=== PATIENT | female | born 1935 | race Caucasian/White ===

== ENCOUNTER 2016-11-05 16:18 | Inpatient (IN) | payer MEDICARE, OTHER ==
[~2016-11-05] VITALS: Ht 160 cm; Wt 106.0 kg
--- NOTE | ~2016-11-05 | HP ---
[facility] 81 Y [address] ROOM: [place] [address] LOCATION: GPCU ADMIT DATE: 11/05/2016 History & Physical DISCHARGE DATE: FAMILY PHYSICIAN: PHYSICIAN, UNKNOWN ATTENDING PHYSICIAN: NOE SAWYER DATE OF SERVICE: CHIEF COMPLAINT: Chest pain and dizziness. HISTORY OF PRESENT ILLNESS: A 81-year-old lady with a past medical history of hypothyroidism, hyperlipidemia, and depression who presented to the emergency department today with dizziness, which has been going on for many weeks now, describes it as a feeling that she is going to pass out, associated with chest tightness, which has been going on for 4 or 5 days now, got worse during the day today, present across her chest without any radiation, elevated with a nitroglycerin in the emergency department, and associated with on and off diaphoresis as well as a sense of impending doom. She also endorsed having shortness of breath along with it, but denied of having any PND, orthopnea, or dyspnea. She also endorsed having nausea, but denied of having any diarrhea, any constipation, any burning on urination, or any extremity swelling. REVIEW OF SYSTEMS: All other systems reviewed and were negative except what is mentioned in the HPI. PAST MEDICAL HISTORY: Significant for: 1. Hypothyroidism. 2. Hyperlipidemia. 3. Depression. 4. Obstructive sleep apnea, uses CPAP at home. MEDICATIONS: Medications are being reconciled right now. ALLERGIES: THE PATIENT IS ALLERGIC TO CELEBREX. SOCIAL HISTORY: The patient quit smoking in 1979. She lives in [place] by herself. FAMILY HISTORY: PATIENT'S NAME: NUNU DUNN [facility] AGE: 81 Y [address] ROOM: [address] [place] [address] LOCATION: GPCU ADMIT DATE: 11/05/2016 History & Physical DISCHARGE DATE: FAMILY PHYSICIAN: PHYSICIAN, UNKNOWN ATTENDING PHYSICIAN: NOE SAWYER Significant for diabetes on the maternal side. PHYSICAL EXAMINATION: VITAL SIGNS: 143/57, 16, 72, and afebrile. GENERAL: In no acute distress. Alert and oriented x3. HEENT: Head; atraumatic and normocephalic. Eyes; nonicteric. No pallor. Oropharynx; moist mucous membranes. CARDIOVASCULAR: S1 and S2. No murmurs, gallops, or rubs. LUNGS: Clear to auscultation bilaterally. ABDOMEN: Soft, nontender, and nondistended. Bowel sounds are present. EXTREMITIES: No clubbing, cyanosis, or edema. PSYCHIATRIC: Normal affect, mood, and speech. NEUROLOGIC: Cranial nerves 2 through 12 intact. No motor or sensory deficits noted. LABORATORY DATA AND IMAGING STUDIES: Chest x-ray was done in the emergency department, did show cardiomegaly without any interstitial edema or acute infiltrate. EKG was done, showed normal sinus rhythm with sinus arrhythmia without any acute ST-T wave changes. Laboratory work done in the emergency department showed a normal BMP, normal CBC, and first set of troponin is negative. D-dimer was elevated at 1.12. ASSESSMENT AND PLAN: 1. Unstable angina. 2. Hypothyroidism. 3. Hyperlipidemia. 4. Depression. 5. Dizziness. Plan: We are going to admit this patient given the presentation of unstable angina is on my top differential. We are going to start her acute coronary syndrome protocol including heparin drip. Cardiology consultation will be obtained. Given the elevated D-dimer and chest pain, I am going to obtain a CT of the chest, pulmonary embolism protocol. A CAT scan of the head for the dizziness. Further management will depend on her progress in the hospital. She also have obstructive sleep apnea. We will continue to use CPAP at night at this point. Bedrest with bathroom privileges. She is a full code. MD MAHI SALCIDO/lenin PATIENT'S NAME: NUNU DUNN [facility] AGE: 81 Y [address] ROOM: [address] [place], [place] [address] [facility] AD[facility] DATE: 11/05/2016 History & Physical DISCHARGE DATE: FAMILY PHYSICIAN: PHYSICIAN, UNKNOWN ATTENDING PHYSICIAN: NOE SAWYER /[id number] D: [id number] T: [id number] HISTORY & PHYSICAL
--- NOTE | ~2016-11-05 | ER ---
PATIENT'S NAME: NUNU DUNN [facility] AGE: 81 Y [address] ROOM: [address] [address] LOCATION: GPCU ADMIT DATE: 11/05/2016 ER/Outpatient Report DISCHARGE DATE: FAMILY PHYSICIAN: PHYSICIAN, UNKNOWN ATTENDING PHYSICIAN: NOE LORENZO Time of Arrival: 1610 hours. Time of Evaluation: 1610 hours. CHIEF COMPLAINT: Chest pain and palpitations. HISTORY OF PRESENT ILLNESS: The patient is a 81-year-old female, who presents to the emergency department today with chief complaint of chest pain and palpitations. She reports this started about 2-3 hours prior to arrival. She has had some decreased energy over the past couple days. She feels like her heart is beating fast as well as having a pressure in the center of her chest. Denies any radiation. Does feel like she is going to pass out. Denies any room spinning. Does report it is a knot type feeling. Denies any shortness of breath. Pain is currently 0/10 in severity. En route, the patient was given aspirin and nitroglycerin. The nitroglycerin did relieve the patient's pain. PAST MEDICAL HISTORY: Hypothyroidism, dyslipidemia, depression, obstructive sleep apnea. PAST SURGICAL HISTORY: Bowel resection, back x2, bilateral knees. SOCIAL HISTORY: The patient quit smoking in 1979. Denies any tobacco, alcohol, or illicit drug use. ALLERGIES: LATEX, DEMEROL, AND CELEBREX. MEDICATIONS: Please see list. ROS: All systems are reviewed by myself and are negative with the exception as discussed in HPI and past medical history. PHYSICAL EXAMINATION: VITAL SIGNS: Weight 106.1 kg, blood pressure 213/111, pulse 62, respiratory PATIENT'S NAME: NUNU UDNN [facility] AGE: 81 Y [address] [place]OM: [facility] [place], [place] [address] LOCATION: GPCU ADMIT DATE: 11/05/2016 ER/Outpatient Report DISCHARGE DATE: FAMILY PHYSICIAN: PHYSICIAN, UNKNOWN ATTENDING PHYSICIAN: NOE LORENZO A rate 18, temperature 98.2, oxygen saturation 97% on 2 L nasal cannula. GENERAL: The patient is a 81-year-old female, who appears her stated age, in no acute distress at this time. HEENT: Normocephalic, atraumatic. Pupils are equal, round, and reactive to light. NECK: Supple. There is no nuchal rigidity. CARDIOVASCULAR: Regular rate and rhythm. No murmurs, rubs, or gallops. LUNGS: Clear to auscultation bilaterally. No wheezes, rales, or rhonchi. ABDOMEN: Soft, nontender, and nondistended. No rebound, rigidity, or guarding. MUSCULOSKELETAL: The patient moves all 4 extremities. SKIN: Warm and dry. There is no rashes or lesions noted. LABORATORY DATA AND X-RAYS: Labs and x-rays are obtained. EKG is obtained, is interpreted by myself, shows sinus rhythm with a rate of 63, left axis deviation, normal interval. No ST elevation, ST depression, T-wave inversion. CBC is normal. Lactate is normal. Coags are normal. Procalcitonin is less than 0.05. ProBNP is 152. CMP is unremarkable. LFTs are normal. Magnesium is normal. Cardiac enzymes are normal. Free T4 is normal. TSH is normal. Chest x-ray shows no acute process. D-dimer is elevated at 1.12. CT scan of the chest is pending at the time of transfer of care. IMPRESSION: 1. Chest pain, rule out acute coronary syndrome. 2. Palpitations. 3. Elevated D-dimer. 4. Initial visit. EMERGENCY DEPARTMENT COURSE: The patient was brought back to the examination room. Seen and evaluated by myself. IV is established. Laboratory analysis and imaging are obtained as described above. The patient was given aspirin and nitroglycerin prior to arrival. The patient was initially chest pain-free. Her pain did return. It was 3/10. She was given another nitroglycerin with improved symptoms. I did discuss results with the patient. The patient's D-dimer is elevated and a CT scan of the chest, PE study was ordered and is pending at the time of transfer of care. I did discuss the case with Dr. Lorenzo at the Hospitalist Service. He does agree to accept the patient and we will await CT scan results. I have discussed the case with Dr. Glynn who will follow up on the CT results as well. DISPOSITION/FOLLOW-UP: The patient is admitted under the care of Dr. Lorenzo in stable condition. PATIENT'S NAME: MONA, NUNU F [facility] AGE: 81 Y [address] ROOM: [address] [place] [id number] [facility] AD[facility] DATE: 11/05/2016 ER/Outpatient Report DISCHARGE DATE: FAMILY PHYSICIAN: PHYSICIAN, UNKNOWN ATTENDING PHYSICIAN: NOE LORENZO DO WILLIAM PINEDA/lenin /[id number] d: 11/06/16 0632 t: 11/07/16 0755, OUTPATIENT REPORT
--- NOTE | ~2016-11-05 | ER ---
PATIENT'S NAME: NUNU DUNN [facility] AGE: 81 Y [address] ROOM: [facility] [place], [place] [address] [facility] AD[facility] DATE: 11/05/2016 ER/Outpatient Report DISCHARGE DATE: FAMILY PHYSICIAN: PHYSICIAN, UNKNOWN ATTENDING PHYSICIAN: NOE LORENZO HISTORY OF PRESENT ILLNESS: This patient is a 81-year-old female who presented to the emergency room with chest pain, palpitations, and loss of energy. The patient saw Dr. Rosas. See Dr. Rosas's dictation in regards to the chief complaint, history of the present illness, past medical history, physical exam, chest x-ray, EKG, and laboratory study results. The patient did have an elevated D-dimer. Dr. Rosas did order a CT scan of the chest with PE protocol along with CT scan of the head. Dr. Lorenzo hospitalist has seen the patient and will admit the patient to the hospital. Dr. Rosas transferred the patient's care over to me at shift change and asked me to follow up with the CT scan results of the head and chest with PE protocol. CT scan of the chest with PE protocol showed no acute pulmonary embolism or other intrathoracic abnormalities. CT scan of the head showed no acute bleed, midline shift, mass effect, or skull fracture. The patient did have some small vessel ischemic changes. CT scan is read by Radiology, see dictated transcribed report. I did again talk with Dr. Lorenzo about the results of the CT scan. The patient will be admitted to the hospital. MD SELAM SCHMIDT/modl /[id number] d: 11/05/162324 t: 11/06/16 1824, OUTPATIENT REPORT
--- NOTE | ~2016-11-05 | CON ---
PATIENT'S NAME: NUNU DUNN [facility] AGE: 81 Y [address] ROOM: [place] [address] LOCATION: GPCU ADMIT DATE: 11/05/2016 Consultation DISCHARGE DATE: 11/06/2016 FAMILY PHYSICIAN: Physician, Unknown ATTENDING PHYSICIAN: Marla Lorenzo DATE OF CONSULTATION: 11/06/2016 REFERRING PHYSICIAN: Angel Nguyen MD CARDIOLOGY CONSULTATION REASON FOR CARDIOLOGY CONSULTATION: Chest pain. HISTORY OF PRESENT ILLNESS: This is a 81-year-old female, who presents to the [facility] Emergency Department with complaints of chest pain and palpitations lasting over the last few hours. She also admits to having some decreased energy over the last week. She denies presyncope or syncope. She also denies nausea, vomiting, or diarrhea. The patient's pain was ultimately relieved during her ambulance ride to the hospital with a sublingual nitroglycerin. She has a previous history of a coronary angiography which was negative in 2008. Her other history includes peptic ulcer disease, cholecystectomy, and incarcerated hernia surgery in 2016. She also has noted dyslipidemia and hypothyroidism as well as obstructive sleep apnea. Other than her complaints of chest pain, she admits to no recent changes in health. PAST MEDICAL HISTORY: As listed in the HPI. PAST SURGICAL HISTORY: As listed in the HPI. FAMILY HISTORY: The patient's mother had a history of stroke and her father had a history of heart disease, specifically myocardial infarction. He also had noted emphysema. She had a grandfather with a history of stroke and a grandmother with a history of colon cancer. SOCIAL HISTORY: The patient is a former cigarette smoker. She smoked a pack and half for 25 years and quit smoking in 1981. She denies alcohol or illicit drug use. CURRENT MEDICATIONS: 1. Heparin IV per ACS protocol. PATIENT'S NAME: NUNU DUNN [facility] AGE: 81 Y [address] ROOM: [place] [address] LOCATION: GPCU ADMIT DATE: 11/05/2016 Consultation DISCHARGE DATE: 11/06/2016 FAMILY PHYSICIAN: Physician, Unknown ATTENDING PHYSICIAN: Marla Lorenzo 2. Aspirin 81 mg p.o. daily. 3. Lipitor 80 mg p.o. daily in the evening. MEDICATION ALLERGIES: 1. Meperidine causing hives. 2. Celebrex causing mouth edema. 3. Latex causing rash. REVIEW OF SYSTEMS: Pertinent positive review of systems listed in the HPI. All other review of systems evaluated and negative. LABORATORY DATA AND IMAGING STUDIES: Diagnostics: CMS evaluation shows a sodium of 145, potassium 4.4, BUN of 24, creatinine 0.8, and glucose of 93. CBC evaluation shows a white blood cell count of 3.9, hemoglobin of 9.3, hematocrit 31.7, and platelets of 120,000. Cardiac enzyme trend shows a CPK of 31, then 28, then 29, and then 25; CK-MB of less than 0.5, then 0.5, then less than 0.5 x2; and a troponin I of less than 0.04 x4 values. PHYSICAL EXAMINATION: VITAL SIGNS: Afebrile. Pulse 61, respirations 24, blood pressure 142/93, and O2 saturation 94% on room air. The patient weighs 106 kg. SKIN: [place], warm, and dry. EYES: Sclerae clear. No xanthelasmas. ENT: Oral mucosa is pink and moist. No jugular venous distention or carotid bruits. CHEST: Respirations are even and unlabored. LUNGS: Clear to auscultation. HEART: Regular rate and rhythm. Normal S1 and S2. Does have the presence of a 2/6 systolic murmur. ABDOMEN: Soft and nontender. MUSCULOSKELETAL: Gait is normal. EXTREMITIES: Peripheral pulses palpable. No clubbing, cyanosis, or edema. PSYCHIATRIC: Alert and oriented. Mood and affect appropriate. IMPRESSION AND PLAN: Per Dr. Nguyen: 1. Unstable angina. 2. Hyperlipidemia. 3. Hypothyroidism. We will plan to proceed with a Lexiscan stress test to fully evaluate myocardial perfusion imaging. We will also check an echocardiogram to fully evaluate ejection fraction as well as to look for wall motion or valvular abnormalities. We will continue to monitor, evaluate, and treat as PATIENT'S NAME: NUNU DUNN [facility] AGE: 81 Y [address] ROOM: [place] [address] LOCATION: GPCU ADMIT DATE: 11/05/2016 Consultation DISCHARGE DATE: 11/06/2016 FAMILY PHYSICIAN: Physician, Unknown ATTENDING PHYSICIAN: Marla Lorenzo. Thank you for this consult. Thank you for allowing [facility] to interact in the care of this patient. GAMAL MCKEON APRN FOR [facility]IE-[facility] BOSSMAN CASAS/lenin /[id number] d: 11/06/162100 t: 11/09/16 1754, CONSULTATION REPORT
--- NOTE | ~2016-11-05 | ESTC ---
Cardiac Perfusion Imaging Demographics Patient Name MONA Romo Gender Female Patient Number [id number] Race Visit Number [id number] Ethnicity Corporate ID Room Number G6331 Accession Number [id number] Height 63 inches Date of 1935 Weight 233 pounds A Interpreting Stephanie Barnett Date of study 11/06/2016 Physician Supervising /LENKA Ledezma APRN NM Technologist Ordering Physician Patrick Coulter Stress Ellie FLOREST, A gem technician RDCS Stress ECG Reading Wilberto Ledezma APRN Nurse Rita Oliveira RN Physician Procedure Procedure Type: Nuclear Stress Test:Cardiolite Stress Test Procedure Start time: 11/06/2016 08:20 Indications: Angina. Risk Factors The patient risk factors include:prior PCI on 08/06/2007;obesity, former tobacco use, treated hypercholesterolemia and ( years not smokin). Conclusions Summary Perfusion Images: The overall quality of the study is fair, due to gastrointestinal tracer uptake. Left ventricular cavity is noted to be normal on the stress and rest studies. There is no evidence of abnormal lung activity. The right ventricle is not visualized and cannot be assessed. Stress SPECT images and Rest SPECT images demonstrate homogenous tracer distribution throughout the myocardium except for mild decrease uptake in the area involving the lateral wall worse on rest images consistent with artifact. Gated SPECT imaging reveals normal myocardial thickening and wall motion. The left ventricular ejection fraction was calculated to be 74%. Impression ECG portion of stress test is clinically negative for ischemia by diagnostic criteria. Myocardial perfusion imaging is probably normal. The lateral wall mild defect worse on rest images with preserved wall motion is consistent with soft tissue attenuation. Overall left ventricular systolic function was normal without regional wall motion abnormalities. Stress Protocols Resting ECG Sinus rhythm with 1st degree AVB Pre-stress physical exam: Patient assessed by Mariya BRAN prior to testing. Predicted HR: 141 bpm HR response: Appropriate BP response: Appropriate ECG Findings No ECG changes suggestive of ischemia. Arrhythmias No rhythm abnormality. Symptoms Shortness of breath. Complications Procedure complication: None. Stress Interpretation Appropriate hemodynamic response to Lexiscan. No significant ST-T wave changes with Lexiscan. ECG portion is negative for ischemia by diagnostic criteria. Will correlate with nuclear images. Imaging Results Summed scores - Summed stress score: 14 - Summed rest score: 12 - Summed difference score: 2 Stress ejection Ejection fraction:74 % EDV :139 ml ESV :36 ml Stroke volume :103 ml LV mass :163 gr Imaging Protocols Rest Stress Isotope:Tc99m Sestamibi IV Isotope: Tc99m Sestamibi IV Isotope dose:14.8 mCi Isotope dose:43.2 mCi Date:11/06/2016 07:14 Date:11/06/2016 09:33 Technique: SPECT Technique: Gated Supine SPECT Supine IV remains in place after procedure. Scan Time:45-60 minutes post Scan Time:45-60 minutes post injection injection Procedure Medications - Regadenoson (Lexiscan) 0.4 mg IV over 10-15 sec. I.V. 0.4 mg. Medical History Admission Data Admission date: 11/05/2016 Admission Time: 18:19 Hospital Status: Inpatient. Signatures dtt: DAVE HOANG dtd: 11/06/16 0820 Physician Self Edit
--- NOTE | ~2016-11-05 | DS ---
PATIENT'S NAME: NUNU DUNN [facility] AGE: 81 Y [address] ROOM: [address] [place], [place] [address] LOCATION: GPCU ADMIT DATE: 11/05/2016 Discharge Summary DISCHARGE DATE: 11/06/2016 FAMILY PHYSICIAN: Physician, Unknown ATTENDING PHYSICIAN: Marla Lorenzo PRINCIPAL DIAGNOSES: 1. Atypical chest pain. 2. Essential hypertension. 3. Hypothyroidism. 4. Hyperlipidemia. 5. Depression. 6. Dizziness. 7. Microcytic anemia. HOSPITAL COURSE: A 81-year-old lady was admitted with a chest pain which was very typical for cardiac in nature. Initial EKG and her troponin levels in the hospital were negative. Chest x-ray was also not significant for any changes. A CT scan of the chest with the PE protocol was obtained which was negative for any pulmonary embolism. Given her dizziness, a CT scan of the head was also obtained which was negative. A Lexiscan was done in the hospital per Cardiology's recommendation which returned negative. Initially, she was put on ACS protocol and was discharged to home on the same medication which she came in with. Additional medication was amlodipine 2.5 mg p.o. q. day. Of note, she was noted to have a hemoglobin of 9.3 in the hospital. MCV was 85. I would recommend a PCP followup within 1 week to work up for this normocytic anemia. DISCHARGE MEDICATIONS: 1. Aspirin 81 mg p.o. daily. 2. Zofran 4 mg p.o. q.8 hours. 3. Omeprazole 20 mg p.o. twice daily. 4. Trazodone 50 mg p.o. every night at bedtime. 5. Albuterol 2 puffs inhalation every 6 hour p.r.n. 6. Levothyroxine 88 mcg p.o. every day before breakfast. 7. Trospium chloride 60 mg p.o. every day. 8. Sertraline 200 mg p.o. every day. 9. Gabapentin 1200 mg p.o. every evening. 10. Multiple vitamins. 11. Ascorbic acid 250 to 500 mcg p.o. every day. 12. Vitamin D3, 2000 units every night at bedtime. 13. Knippa 5/325, 1 tablet p.o. q.4 hours for pain. 14. Mylanta 30 mL p.o. every day. PATIENT'S NAME: NUNU DUNN [facility] AGE: 81 Y [address] ROOM: [id number] [place] [id number] [facility]: 11/05/2016 Discharge Summary DISCHARGE DATE: 11/06/2016 FAMILY PHYSICIAN: Physician, Unknown ATTENDING PHYSICIAN: Marla Lorenzo 15. Nitroglycerin 0.4 mg sublingual, may take up to 3 doses every 5 minutes if symptomatic left angina pain persists. 16. Wellbutrin XL 150 mg p.o. every night at bedtime. 17. Primidone 50 mg p.o. every night at bedtime. 18. Flonase 2 sprays in nostrils every day twice daily. 19. Advair 500/50, 1 puff inhalation twice daily. 20. Senna docusate 1 tablet p.o. twice daily. 21. New medications include: Amlodipine 2.5 mg p.o. every day. 22. Ibuprofen 400 mg p.o. t.i.d. p.r.n. for 1 week. DISCHARGE INSTRUCTIONS: 1. Activity: As tolerated. 2. Diet: As tolerated. 3. Followup: Follow up with Dr. Rojas in 1 week for work up of anemia. CONDITION ON DISCHARGE: The patient was discharged in stable condition. MD MAHI SALCIDO/lenin /[id number] d: 11/07/16 1342 t: 11/09/16 1517, DISCHARGE SUMMARY
--- NOTE | ~2016-11-05 | ECHO ---
Transthoracic Echocardiography Report (TTE) Demographics Patient Name NUNU DUNN Date of Study 11/06/2016 Patient Number [id number] Visit Number [id number] Date of 1935 Room Number G6331 Gender Female Number Age 81 year(s) Referring Bj Cabrera Cardiac Rehab Nurse Conor Boyer Physician Physician Interpreting Carmen Stuart Air Brake Man Physician Supervising Ordering Bj Cabrera MD/MLP Physician Nurse Stress Safety And Occupational Health Manager Conclusions Contractility Score Summary Normal Left Ventricular contractility was noted. Summary The estimated left ventricular ejection fraction is 55-60%.Mild septal left ventricular hypertrophy.Normal LVEF and WM. Trivial MR. Mild aortic sclerosis. The right atrium is mildly dilated. There is mild pulmonary hypertension. The pulmonary pressure (RVSP) is 38 mmHg. The ascending aorta appears moderately dilated. The maximum diameter measures 3.7 cm. Procedure Type of Study TTE procedure:2D Echocardiogram, M-Mode, Doppler , Color Doppler. Procedure Date Date: 11/06/2016 Start: 09:39 AM Study Location: Echo Lab Technical Quality: Good visualization Indications:Chest pain and Unstable angina. Appropriate Use Criteria: 9 Patient Status: Routine HR: 65 bpm BP: 130/61 mmHg M-Mode/2D Measurements LV Diastolic Dimension: 4.76 cm LV Systolic Dimension: 2.59 cm LV Septum Diastolic: 1.12 cm LV PW Diastolic: 0.95 cm AO Root Dimension: 2.7 cm Cardiac Output: 5.69 l/min LA Dimension: 3.3 cm EF Estimated: 60 % LVOT: 1.9 cm LVOT VTI: 30.9 cm RV Base: 3.31 cm LV Stroke volume: 87.57 ml RV Length: 7.17 cm TAPSE: 2.42 cm TDI-S': 16.7 cm/s Doppler Measurements AV Peak Velocity: 2.23 m/s MV Peak E-Wave: 1.07 m/s AV Peak Gradient: 19.89 mmHg MV Peak A-Wave: 0.83 m/s AV Mean Gradient: 11 mmHg MV E/A Ratio: 1.28 LVOT Peak Velocity: 1.38 m/s MV Deceleration Time: 232 msec TR Velocity:2.94 m/s PV Peak Velocity: 1.41 m/s TR Gradient:34.57 mmHg PV Peak Gradient: 7.95 mmHg Estimated RAP:3 mmHg Estimated PASP: 37.57 mmHg Estimated RVSP: 38 mmHg A' Septal Velocity: 0.12 m/s E' Septal Velocity: 0.11 m/s A' Lateral Velocity: 0.16 m/s E' Lateral Velocity: 0.1 m/s Findings Left Ventricle The left ventricle is normal in size .Mild septal left ventricular hypertrophy. Normal LVEF and WM. Right Ventricle Normal right ventricle structure and function. Left Atrium Normal left atrial size. Right Atrium The right atrium is mildly dilated. IVC measures 1.69 cm with inspiratory collapse. Mitral Valve Trivial mitral regurgitation by color Doppler. Aortic Valve The aortic valve is mildly sclerotic. Tricuspid Valve Mild tricuspid regurgitation by color Doppler. There is mild pulmonary hypertension. The pulmonary pressure (RVSP) is 38 mmHg. Pulmonic Valve Normal pulmonic valve structure and function. Pericardial Effusion No evidence of pericardial effusion. Miscellaneous The ascending aorta appears mildly dilated. The maximum diameter measures 3.7 cm. Pleural Effusion No evidence of pleural effusion. Contractility Score LV regional wall motion:(0-Non visualized 1-Normal 2-Hypokinesis 3-Akinesis 4-Dyskinesis 5-Aneurysm) Signature dtt: Sade Morales dtd: 11/06/16 0939 Physician Self Edit
[~2016-11-05 16:18] MED LIST: ASPIRIN LO-DOSE81 MG PO; DESYREL50 MG PO; DULCOLAX10 MG R; LEVOTHROID (SY88 MCG PO; MYLANTA (MAG-AL30 ML PO; NEURONTIN300 MG PO; NITROSTAT0.4 MG SL; NORCO 5-325 TA1 EACH PO; NORVASC5 MG PO; OMEPRAZOLE20 MG PO; PROAIR HFA8.5 GM INH; SENOKOT S (S1 TABLET PO; SIMETHICONE PO; THERA-VITE W/ B1 TAB PO; TRICOR48 MG PO; TROSPIUM CHLORI60 MG PO; VITAMIN C250 M1 PO; VITAMIN D-32000 UNI1 PO; ZOLOFT100 MG PO; [UNRECOGNIZED DRUG - OTHER] PO
[2016-11-05 16:41] LABS: BASOPHIL % 0.7 %; EOSINOPHIL # 0.1 K/uL (0.0-0.5); EOSINOPHIL % 1.6 %; HEMATOCRIT 34.4 % (33.0-46.0); HEMOGLOBIN 10.2 g/dL (10.0-15.0); IMMATURE GRANULOCYTE % 0.2 %; LYMPHOCYTE # 1.5 K/uL (0.8-4.0); LYMPHOCYTE % 34.2 %; MCHC 29.7 gm/dL (32.0-36.5); MCV 84.3 fl (83.0-98.0); MONOCYTE # 0.4 K/uL (0.0-1.0); MONOCYTE % 9.6 %; MPV 10.4 fl (9.4-12.4); NEUTROPHIL # (ANC) 2.3 K/uL (1.8-7.8); NEUTROPHIL % 53.7 %; NRBC % 0 /100WBC (0-0.00); PLATELET COUNT 195 K/uL (150-450); RBC 4.08 M/uL (3.50-5.50); RDW-CV 15.8 % (11.9-14.6); WBC 4.3 K/uL (4.0-11.0)
[2016-11-05 16:54] LABS: PTT 24 SECONDS (25-32)
[2016-11-05 17:00] LABS: ALBUMIN 3.2 gm/dL (3.5-5.0); ALK PHOS 51 IU/L (33-138); ALT 16 IU/L (12-78); ANION GAP 11.3 (10.0-19.0); AST 13 IU/L (10-40); BLOOD UREA NITROGEN 20 mg/dL (6-24); CALCIUM 9.4 mg/dL (8.5-10.5); CHLORIDE 107 mMol/L (96-110); CO2 28 mMol/L (22-32); CPK 31 IU/L (21-215); CREATININE 0.9 mg/dL (0.5-1.1); ESTIMATED GFR (MDRD EQUATION) 60; MAGNESIUM 1.9 mg/dL (1.3-2.6); POTASSIUM 4.3 mMol/L (3.7-5.1); SODIUM 142 mMol/L (135-145); TOTAL BILIRUBIN 0.2 mg/dL (0.0-1.5); TOTAL PROTEIN 6.8 g/dL (6.0-8.4)
[2016-11-05 19:04] LABS: CPK 28 IU/L (21-215)
[2016-11-05 20:03] LABS: BILIRUBIN URINE NEGATIVE (NEGATIVE); BLOOD URINE NEGATIVE /UL (NEGATIVE); COLOR URINE YELLOW (YELLOW); GLUCOSE URINE NEGATIVE (NEGATIVE); KETONE URINE NEGATIVE (NEGATIVE); LEUKOCYTES URINE NEGATIVE /UL (NEGATIVE); NITRITE URINE NEGATIVE (NEGATIVE); PROTEIN URINE NEGATIVE (NEGATIVE); SPEC GRAVITY URINE 1.015 (1.003-1.035); TURBIDITY URINE CLEAR (CLEAR); UROBILINOGEN URINE NORMAL (NORMAL)
--- NOTE | 2016-11-05 22:14 | NUR ---
PATIENT ADMITTED WITH UNSTABLE ANGINA. SHE STATES SHE HAS BEEN FEELING LIGHTHEADED AND DIZZY FOR ABOUT A WEEK. TODAY SHE SAID SHE STARTED TO FEEL A KNOT IN HER CHEST AND THEN CALLED EMS. CURRENTLY SHE STATES NO CHEST PAIN. CALL LIGHT EDUCATION DONE. FAMILY AT BEDSIDE.
--- NOTE | 2016-11-06 04:45 | NUR ---
A/O. HR 60-70s. SBP 120-150s. ROOM AIR DAY. CPAP AT NIGHT. AFEBRILE. DENIES PAIN. DENIES CHEST PAIN. C/O NAUSEAx1 ZOFRAN GIVEN RELIEF NOTED. 1A TO BATHROOM. NPO AT IN FOR JUSTUS SCAN THIS AM.
[2016-11-06 06:17] LABS: BASOPHIL % 0.8 %; EOSINOPHIL # 0.1 K/uL (0.0-0.5); EOSINOPHIL % 1.6 %; HEMATOCRIT 31.7 % (33.0-46.0); HEMOGLOBIN 9.3 g/dL (10.0-15.0); IMMATURE GRANULOCYTE % 0.3 %; LYMPHOCYTE # 1.4 K/uL (0.8-4.0); LYMPHOCYTE % 35.8 %; MCHC 29.3 gm/dL (32.0-36.5); MCV 85.2 fl (83.0-98.0); MONOCYTE # 0.4 K/uL (0.0-1.0); MONOCYTE % 10.1 %; MPV 10.4 fl (9.4-12.4); NEUTROPHIL % 51.4 %; NRBC % 0 /100WBC (0-0.00); PLATELET COUNT 170 K/uL (150-450); RBC 3.72 M/uL (3.50-5.50); RDW-CV 15.9 % (11.9-14.6); WBC 3.9 K/uL (4.0-11.0)
[2016-11-06 06:36] LABS: ANION GAP 11.4 (10.0-19.0); BLOOD UREA NITROGEN 24 mg/dL (6-24); CALCIUM 9.8 mg/dL (8.5-10.5); CHLORIDE 110 mMol/L (96-110); CO2 28 mMol/L (22-32); CREATININE 0.8 mg/dL (0.5-1.1); ESTIMATED GFR (MDRD EQUATION) > 60; POTASSIUM 4.4 mMol/L (3.7-5.1); SODIUM 145 mMol/L (135-145)
[2016-11-06] MEDS ORDERED: FLONASE 50 MCG/16 GM NOSE (12:20)
[2016-11-06] MEDS ORDERED: MYSOLINE50 MG PO (12:20)
[2016-11-06] MEDS ORDERED: ZOFRAN4 MG PO (12:20)
[2016-11-06] MEDS ORDERED: WELLBUTRIN XL150 M1 PO (12:20)
[2016-11-06] MEDS ORDERED: ADVAIR 500-501 EACH INH (12:21)
[2016-11-06] MEDS ORDERED: SM SENNA-S TAB1 EACH PO (12:24)
--- NOTE | 2016-11-06 15:35 | NUR ---
Introduced self and role of care management to pt. Pt states she lives in [place] by herself and her daughter lives down in [place]. She states she does not drive that much anymore. She has a walker and cane to use at home. She does her own cooking and cleaning and sets up her own meds. At this time she plans on home when ready and denies the need for hhc. WIll continue to follow.
[2016-11-06] MEDS ORDERED: NORVASC2.5 MG PO (17:23)
[2016-11-06] MEDS ORDERED: ADVIL200 MG PO (17:34)
--- NOTE | 2016-11-06 18:13 | NUR ---
ASSESSED PATIENT THROUGHOUT DAY. ALL VITALS WITHIN NORMAL LIMITS EXCEPT FOR O2 SATS WHICH CONSISTANTLY STAYED AROUND 88. PATIENT LEFT FLOOR AT 0800 FOR STRESS TEST AND RETURNED TO THE FLOOR AT 1130. PATIENT WAS UP TO BATHROON FOUR TIMES DURING SHIFT AD RHONDA AND WAS A ONE ASSIST. DAUGHTER WAS IN ROOM FOR A FEW HOURS IN THE AFTERNOON. PATIENT WAS PRESCRIBED NORVASC FOR HIGH BLOOD PRESSURE AND IT WAS GIVEN BEFORE PATIENT LEFT AT 1730. PATIENT WAS DISMISSED AT 1810 AND TAKEN DOWN TO CAR BY INSURANCE PROFESSIONAL VIA WHEELCHAIR. PATIENT'S DAUGHTER PICKED HER UP AT MAIN ENTRANCE.
[2016-11-28] MEDS ORDERED: NEURONTIN300 MG PO (13:39)
[2016-11-28] MEDS ORDERED: FEOSOL325 MG PO (13:47)
== END 2016-11-06 20:09 | disposition disaster alternative care site (69) | DRG 311 ==
LOC: GMED 16:18 → GPCU 18:19
PROVIDERS: Emergency Medicine; ADMIT Internal Medicine
DX: I20.0 Unstable angina (principal); Z99.81 Dependence on supplemental oxygen; D64.9 Anemia, unspecified; Z68.41 Body mass index [BMI] 40.0-44.9, adult; F32.9 Major depressive disorder, single episode, unspecified; Z87.891 Personal history of nicotine dependence; E03.9 Hypothyroidism, unspecified; E78.5 Hyperlipidemia, unspecified; G47.33 Obstructive sleep apnea (adult) (pediatric); Z79.82 Long term (current) use of aspirin
CPT/HCPCS: A9500; C9113; J0280; J1644; J2405; J2785; Q9967

== ENCOUNTER → 2016-12-05 | Day surgery (SDC) | payer MEDICARE, OTHER ==
[~2016-12-05] VITALS: Ht 160 cm; Wt 101.6 kg
[~2016-12-05] MED LIST changes: +ADVAIR 500-501 EACH INH; +ADVIL200 MG PO; +FEOSOL325 MG PO; +FLONASE 50 MCG/16 GM NOSE; +MYSOLINE50 MG PO; +NORVASC2.5 MG PO; +SM SENNA-S TAB1 EACH PO; +WELLBUTRIN XL150 M1 PO; +ZOFRAN4 MG PO
--- NOTE | ~2016-12-05 | OR ---
PATIENT'S NAME: NUNU DUNN [facility] AGE: 81 Y [address] ROOM: [place] [address] LOCATION: GEND ADMIT DATE: 12/05/2016 OR/Procedure Report DISCHARGE DATE: FAMILY PHYSICIAN: Amy Rojas MD ATTENDING PHYSICIAN: Amy Rojas SURGEON: Aleksander Guadalupe MD HUMAN [employer]OURCES HR GENERALIST: DATE OF PROCEDURE: 12/05/2016 PROCEDURE PERFORMED: Colonoscopy with polypectomy. INDICATIONS: Anemia. MEDICATIONS: Please see anesthesiology record for details. CONSENT: The risks/benefits/alternatives were discussed, and the patient or her power of admitted attorneys expressed understanding and agreed to proceed. Informed consent was obtained and placed on the chart. Time-out was completed prior to starting the procedure. DESCRIPTION OF PROCEDURE: The patient was placed in the left lateral decubitus position. One lead EKG monitoring was used along with intermittent blood pressure monitoring and pulse oximetry. The above medications were given and titrated to response. Once adequate sedation was completed, rectal exam was performed. The colonoscope was then passed through the rectum, into the sigmoid colon. The scope was then passed through the descending, transverse, and ascending colon. The scope was then passed into the cecum. The cecum was identified by the ileocecal valve and appendiceal orifice. The scope was then withdrawn. On withdrawal, the mucosa of the colon was examined. In the rectum, retroflexion was completed. The scope was then withdrawn from the patient. The patient tolerated the procedure well. There were no complications. SUMMARY OF FINDINGS: 1. Descending colon polyp, 5 mm, sessile, removed using snare without cautery. 2. Diverticulosis, mild, mainly in the sigmoid colon. 3. Internal hemorrhoids, medium, nonbleeding. 4. The terminal ileum was intubated and appeared normal. ASSESSMENT AND PLAN: Anemia: Nothing seen on colonoscopy to explain the patient's anemia. Recommend follow up with PCP for further workup of anemia. PATIENT'S NAME: NUNU DUNN [facility] AGE: 81 Y [address] ROOM: [place] [address] LOCATION: GEND ADMIT DATE: 12/05/2016 OR/Procedure Report DISCHARGE DATE: FAMILY PHYSICIAN: Amy Rojas MD ATTENDING PHYSICIAN: Amy Rojas J MD ALDEN STANLEY/lenin /[id number] d: 12/05/16 1226 t: 12/07/16 1401, OPERATIVE SUMMARY
--- NOTE | ~2016-12-05 | OR ---
PATIENT'S NAME: NUNU DUNN [facility] AGE: 81 Y [address] ROOM: [place] [address] LOCATION: GEND ADMIT DATE: 12/05/2016 OR/Procedure Report DISCHARGE DATE: FAMILY PHYSICIAN: Amy Rojas MD ATTENDING PHYSICIAN: Amy Rojas SURGEON: Aleksander Guadalupe MD CARDROOM WORKER: DATE OF PROCEDURE: 12/05/2016 PROCEDURE: Esophagogastroduodenoscopy. INDICATION: Anemia. MEDICATIONS: Please see anesthesiology record for details. CONSENT: The risks/benefits/alternatives were discussed and the patient or her power of divorce attorney expressed understanding and agreed to proceed. Informed consent was obtained and placed in the chart. Time-out was completed prior to starting the procedure. PROCEDURE: Patient was placed in the left lateral decubitus position. One- lead EKG monitoring was used along with intermittent blood pressure monitoring and pulse oximetry. Bite block was placed in the patient's mouth. The above medications were given and titrated to response. Once adequate sedation was completed, the endoscope was passed through the patient's mouth into the posterior oropharynx. The endoscope was then passed into the esophagus, stomach and duodenal bulb. The duodenum was examined through the third portion. The endoscope was then withdrawn into the stomach. In the stomach, retroflexion was completed. The scope was then straightened and withdrawn from the patient. The patient tolerated the procedure well. There were no complications. FINDINGS: 1. Normal esophagus. 2. Normal stomach. 3. Normal duodenum status post biopsies. Rule out celiac disease, given the patient's anemia. ASSESSMENT AND PLAN: Anemia: Nothing seen on EGD to explain patient's anemia. There was no evidence of any blood in the upper GI tract or other lesions. Biopsies were taken from the small bowel to evaluate for celiac disease. We will proceed with colonoscopy. PATIENT'S NAME: NUNU DUNN [facility] AGE: 81 Y [address] ROOM: [place] [address] LOCATION: [facility] ADMIT DATE: 12/05/2016 OR/Procedure Report DISCHARGE DATE: FAMILY PHYSICIAN: Amy Rojas MD ATTENDING PHYSICIAN: Amy Rojas J MD ALDEN STANLEY/modl /[id number] d: 12/05/16 1209 t: 12/07/16 1358, OPERATIVE SUMMARY
== END | disposition disaster alternative care site (69) ==
LOC: GPOC 11-28 13:00 → GEND 07:52 → GPOC 08:30 → GEND 13:00 → GPOC 13:00
PROC: 0DBM8ZZ Excision of Descending Colon, Via Natural or Artificial Opening Endoscopic (ICD-10-PCS; principal; 2016-12-05)
PROC: 0DB88ZX Excision of Small Intestine, Via Natural or Artificial Opening Endoscopic, Diagnostic (ICD-10-PCS; 2016-12-05)
DX: D12.4 Benign neoplasm of descending colon (principal); D50.9 Iron deficiency anemia, unspecified; G47.33 Obstructive sleep apnea (adult) (pediatric); I10 Essential (primary) hypertension; K21.9 Gastro-esophageal reflux disease without esophagitis; E03.9 Hypothyroidism, unspecified; M81.0 Age-related osteoporosis without current pathological fracture; F33.1 Major depressive disorder, recurrent, moderate; E78.2 Mixed hyperlipidemia; Z87.891 Personal history of nicotine dependence; Z87.11 Personal history of peptic ulcer disease; Z90.49 Acquired absence of other specified parts of digestive tract; Z90.710 Acquired absence of both cervix and uterus; Z98.890 Other specified postprocedural states; Z96.651 Presence of right artificial knee joint; Z96.652 Presence of left artificial knee joint; Z98.41 Cataract extraction status, right eye; Z98.42 Cataract extraction status, left eye; Z79.899 Other long term (current) drug therapy
CPT/HCPCS: J7030

== ENCOUNTER → 2017-01-30 | Outpatient (CLI) | payer MEDICARE, OTHER | END | disposition disaster alternative care site (69) | LOC: GRAD 01-26 16:00 | DX: R10.9 Unspecified abdominal pain (principal); K76.89 Other specified diseases of liver; K57.30 Diverticulosis of large intestine without perforation or abscess without bleeding ==

== ENCOUNTER → 2017-04-04 | Outpatient (CLI) | payer MEDICARE, OTHER | END | disposition disaster alternative care site (69) | LOC: GRAD 03-29 11:00 | DX: F33.1 Major depressive disorder, recurrent, moderate (principal); M51.26 Other intervertebral disc displacement, lumbar region; M41.9 Scoliosis, unspecified; M47.896 Other spondylosis, lumbar region; M47.897 Other spondylosis, lumbosacral region ==